=== PATIENT | female | born 1985 | race Caucasian/White ===

== ENCOUNTER → 2018-06-24 15:14 | Outpatient (REF) | payer MEDICAID, SELFPAY ==
[2018-06-25 14:36] LABS: Chlamydia Result Negative; GC Result Negative; Specimen Description URINE
== END ==
LOC: LBN 15:14
PROVIDERS: PCP Nurse Practitioner Family; Visit Provider Nurse Practitioner Women's Health
DX: Z11.3 Encounter for screening for infections with a predominantly sexual mode of transmission (principal)
CPT/HCPCS: 87491; 87591

== ENCOUNTER 2020-08-07 11:57 | Outpatient (REF) | payer MEDICAID, SELFPAY ==
--- NOTE | 2020-08-07 11:30 | PAPFT_PTH ---
PATIENT: Rebecca Casiano LOC: [facility] U#:[id number] AGE/SX: 34/F ROOM: RE08/07/[address]: Meghan Herring NP : 1985 BED: DIS: 08/07/2020 SPEC #: [id number] RECD: 08/07/20 12:50 STATUS: TRISTAN REJonel #: [id number] EDNA: 08/07/20 11:[address]: Meghan Herring NP DEPT: [facility] Cytology RECD BY: Arti Cabral ENTERED: 08/07/20 12:50 SP TYPE: PAPFT OTHR DR: Leah Mota, ANNALISE Tissues: 1 - CX/ENDOCX FOR PAP SMEARS Procedures: PAP THIN PREP/UVM Screening HPV DNA PROBE Comments: [id number] (CHLAMYDIA/GC)
[2020-08-08 14:27] LABS: Chlamydia Result Negative (Negative); GC Result Negative (Negative)
== END 2020-08-07 12:17 ==
LOC: LBN 11:57
PROVIDERS: PCP Nurse Practitioner Family; Visit Provider Nurse Practitioner Women's Health
DX: Z12.4 Encounter for screening for malignant neoplasm of cervix (principal); Z11.51 Encounter for screening for human papillomavirus (HPV); Z11.3 Encounter for screening for infections with a predominantly sexual mode of transmission
CPT/HCPCS: 87491; 87591; 88142; 87624

== ENCOUNTER 2020-10-24 09:41 | Day surgery (SDC) | payer MEDICAID, SELFPAY ==
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
--- NOTE | 2020-10-24 07:09 | PDOC.DSDIS_ITS ---
Discharge Plan Disposition Patient Disposition: HOME Condition: Good Discharge Details Reason For Visit: Burn Attending Provider: Pepper Navarrete Primary Care Provider: Leah Mota Home Meds and New Rx's Prescriptions: New acetaminophen [Tylenol] 325 mg capsule 650 mg PO Q6H PRNQty: 30 RF: 0 ibuprofen 600 mg tablet 600 mg PO Q6H PRNQty: 30 RF: 0 tramadol 50 mg tablet 50 mg PO Q6H PRNQty: 14 RF: 0 Continued Nexplanon 68 MG implant 68 mg SQ ONCE Qty: 1 RF: 0 No Action amoxicillin-pot clavulanate 875-125 mg tablet 1 tab PO BID RF: 0 Discharge Instructions Additional Instructions: Activity at Home after surgery: 1. As tolerated 2. No driving if you are taking Tramadol Diet, Nutrition, & wound healin. Avoid alcohol until after you are recovered from your surgery 2. Make sure to eat plenty of lean protein (meat, fish, eggs, cottage cheese, beans) 3. Eat a variety of fruits and vegetables. Eat plenty of high fiber foods to avoid constipation. 4. Drink plenty of liquids to stay hydrated and avoid constipation Pain Medications: 1. Tylenol 650 mg and Ibuprofen 600 mg every 3 hours 2. If a narcotic has been prescribed take as directed only for breakthrough pain For Constipation: 1. Take Milk of Magnesia or MiraLax as needed for constipation Other: 1. You may shower daily. Do not scrub the incisions 2. Do not soak the incisions for 1 week 3. You may alternate ice and heat as needed for pain and swelling Wound Care: 1. Keep the incisions clean and dry 2. If you have any issues with the dressing please let us know. Antoninohaley will call you tomorrow to check in and see how things are going. Please call our office if you develop: 1. Fevers >101.5 2. Nausea or Vomiting 3. Worsening pain 4. Redness and thick discharge from the wounds If after hours please call the Hospital at and ask to speak to the on-call surgeon Referrals: Pepper Navarrete MD [ [facility] STAFF PHYSICIAN] - 10/30/20 2:45 pm Activity:: Activity as Tolerated Diet:: As Tolerated Discharge Orders Discharge Orders: Discharge Order (Routine); Ordered 10/24/20 Ordered By: Pepper Navarrete
[2020-10-24 10:11] VITALS: BP 125/89; PULSE 81; RESP 18; TEMP 36.5; O2SAT 98
[2020-10-24] MEDS: Lactated Ringers 1,000 ML 80 ML IV (10:38)
[2020-10-24] MEDS: ceFAZolin 2 GM/50 ML BAG IVPB (12:35)
[2020-10-24] MEDS: Lidocaine 2% Multi-Dose 50 ML VIAL (12:56)
[2020-10-24 13:50] VITALS: BP 113/75; PULSE 74; RESP 18; TEMP 36.5; O2SAT 97
== END 2020-10-24 14:30 | disposition home or self-care (01) ==
LOC: SUR 09:42
PROVIDERS: PCP Nurse Practitioner Family; Visit Provider Surgery
PROC: (CPT 16020; principal; 2020-10-24 10:15)
DX: T25.312A Burn of third degree of left ankle, initial encounter (principal); X19.XXXA Contact with other heat and hot substances, initial encounter
CPT/HCPCS: 16020; 81025; J0690; J1100; J2001; J2250; J2405

== ENCOUNTER 2021-09-23 13:32 | Outpatient (REF) | payer MEDICAID, SELFPAY ==
--- NOTE | 2021-09-23 10:15 | PAPFT_PTH ---
PATIENT: Rebecca Casiano LOC: [facility] U#:[id number] AGE/SX: 35/F ROOM: RE09/23/[address]: MIGUEL Hernández : 1985 BED: DIS: 09/23/2021 SPEC #: [id number] RECD: 09/23/21 18:32 STATUS: TRISTAN REQ #: [id number] EDNA: 09/23/21 10:[address]: Silvina Romero DEPT: [facility] Cytology RECD BY: Arti Cabral ENTERED: 09/23/21 18:32 SP TYPE: PAPFT OTHR DR: Leah Mota APRN Tissues: 1 - CX/ENDOCX FOR PAP SMEARS Procedures: PAP THIN PREP/UVM Screening HPV DNA PROBE Comments: [id number]
[2021-09-25 14:49] LABS: Chlamydia Result Negative (Negative); GC Result Negative (Negative)
== END 2021-09-23 13:33 | disposition home or self-care (01) ==
LOC: LBN 13:32
PROVIDERS: PCP Nurse Practitioner Family; Visit Provider Nurse Practitioner Family
DX: Z12.4 Encounter for screening for malignant neoplasm of cervix (principal); Z11.3 Encounter for screening for infections with a predominantly sexual mode of transmission; Z11.51 Encounter for screening for human papillomavirus (HPV); R87.820 Cervical low risk human papillomavirus (HPV) DNA test positive
CPT/HCPCS: 87491; 87591; 88142; 87624

== ENCOUNTER 2021-10-22 16:07 | Outpatient (REF) | payer MEDICAID, SELFPAY ==
--- NOTE | 2021-10-22 16:00 | ENDO_PTH ---
PATIENT: Rebecca Casiano LOC: [facility]#:[id number] AGE/SX: 35/F ROOM: RE10/22/[address]: Jany Osborn : 1985 BED: DIS: 10/22/2021 SPEC #: [id number] RECD: 10/22/21 17:16 STATUS: TRISTAN [place] #: [id number] EDNA: 10/22/21 16:[address]: Jany Osborn DEPT: Surgical Specimen RECD BY: Arti Cabral ENTERED: 10/22/21 17:16 SP TYPE: Endo OTHR DR: Leah Mota, ANNALISE Tissues: 1 - ENDOCERVICAL BX/CURRETTE Procedures: GROSS AND MICRO LEVEL 4 Comments: [id number]
== END 2021-10-22 16:08 | disposition home or self-care (01) ==
LOC: LBN 16:07
PROVIDERS: PCP Nurse Practitioner Family; Visit Provider Obstetrics & Gynecology Gynecology
DX: N72 Inflammatory disease of cervix uteri (principal)
CPT/HCPCS: 88305

== ENCOUNTER 2021-12-11 03:32 | Outpatient (CLI) | payer MEDICAID, SELFPAY ==
[2021-12-11 14:19] LABS: TSH (W/Ref FT4) 0.93 uIU/mL (0.36-3.74)
== END 2021-12-11 03:33 | disposition home or self-care (01) ==
LOC: LBO 03:33
PROVIDERS: PCP Nurse Practitioner Family; Visit Provider Nurse Practitioner Family
DX: R63.5 Abnormal weight gain (principal)
CPT/HCPCS: 36415; 84443

== ENCOUNTER 2022-11-03 19:31 | Emergency (ER) | payer MEDICAID, SELFPAY ==
--- NOTE | 2022-11-03 19:30 | RT.EKG_ITS ---
APPROVED REPORT Exam: Resting ECG Reason for Exam: left arm pain Patient Location: E HR:90 bpm ECG Measurements Heart Rate 90 AXIS FL 145 P 65 QRSd 73 QRS 64 QT 361 T 51 QTc 443 Conclusion Sinus rhythm...normal P axis, V-rate 60- 99 Consider left ventricular hypertrophy...(S V1+R V5/V6) >3.25mV sinus rhythm, normal axis, normal intervals, non ischemic
[2022-11-03 19:34] VITALS: BP 144/93; PULSE 84; RESP 20; TEMP 37; O2SAT 98
--- NOTE | 2022-11-03 20:00 | DI.CT_ITS ---
Exam(s) CT UPPER EXTREMITY LT CTA EXAM: CT UPPER EXTREMITY LT CTA CLINICAL HISTORY: LUE pain, paresthesia, discoloration TECHNIQUE: Imaging Protocol: Axial computed tomography images with coronal and sagittal reformatted images were created and reviewed. CONTRAST MATERIAL: Intravenous: Omnipaque 350 Contrast volume:100 mL contrast route:IV COMPARISON: No exams were available for comparison FINDINGS: ARTERIAL: The aortic arch anatomy is conventional. No evidence of dissection. No significant stenos is at the origin of the great vessels off of the aortic arch nor in the subclavian arteries proximal to the vertebral artery takeoff points and both vertebral arteries originated conventional fashion of f of the subclavian arteries bilaterally. Common carotid arteries are patent as are their bifurcatio ns and visualized internal carotid arteries in the neck. Vertebral arteries are patent bilaterally w ith no significant stenosis at their origins nor within the foramen transverse area and both vertebra l arteries contribute to the formation of the basilar artery at the skull base. The left subclavian artery is patent and nonstenotic. The left axillary artery and left brachial art sabas also patent as are the radial and ulnar arteries in the forearm. VENOUS: There is mild narrowing of the left subclavian vein is a passes between the 1st rib and the c lavicle. There are no cervical ribs. IMPRESSION: Normal CT angiogram study of the left upper extremity. Mild narrowing of the left subclavian vein as it passes between the 1st rib and clavicle. RADIATION DOSE DELIVERED: 662.36mGy.cm Total DLP DATA REPOSITORY: All CT scans at this facility are submitted to the National Radiology Data Registry (NRDR) Dose Index Registry (DIR) with the [employer] (ACR). RADIATION OPTIMIZATION: All CT scans at this facility use at least one of these dose optimization te chniques: automated exposure control; mA and/or kV adjustment per patient size (includes targeted exa ms where dose is matched to clinical indication); or iterative reconstruction.
--- NOTE | 2022-11-03 20:31 | ED.GENADUL_ITS ---
Discharge Plan Disposition Patient Disposition: Home Condition: Improving Discharge Details Clinical Impression: Arm pain Primary Care Provider: Leah Mota ED Provider: Dallin Mazariegos Home Meds and New Rx's Prescriptions: New lidocaine [Lidoderm] 5 % adhesive patch,medicated 1 patch topical DAILY Qty: 15 0RF Rx Instructions: leave on most painful area for up to 12 hrs cyclobenzaprine 5 mg tablet 5 mg PO HS PRN (Reason: muscle spasm) Qty: 7 0RF No Action Nexplanon 68 MG implant 68 mg SQ ONCE Qty: 1 0RF Label Comments: Pt reports SQ in left inner arm ibuprofen 600 mg tablet 600 mg PO Q6H PRNQty: 30 0RF Label Comments: Patient denies 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 Return to emergency room for any worsening symptoms Medical Decision Making 36-year-old female presents with atraumatic pain to left upper extremity beginning in her elbow now involving entire left upper extremity from shoulder down to forearm, does not remember any discrete trauma, no history of thromboembolic disease in herself or the family that she knows of, patient does have Nexplanon implant. Slight mottling of skin involving left upper extremity, strong radial pulse, range of motion at shoulder and elbow limited by discomfort, median radial and ulnar nerve distribution sensory exam intact. Patient afebrile nontoxic however appears uncomfortable. Concern for upper extremity DVT versus arterial insult such as dissection or arterial thrombus versus vasospastic event or neuropathic event consider atypical cervical radiculopathy as pain does radiate into the shoulder and neck region on the left side. Low suspicion for ACS. Will trial analgesia anti-inflammatory will obtain basic labs, EKG, stat CT imaging of left upper extremity will attempt to obtain both arterial and venous phase. If incomplete venous phase on study will have patient return for official left upper extremity ultrasound tomorrow. Disposition pending results and reassessment 23: 44 patient feeling much better after anti-inflammatory analgesics range of motion of shoulder and elbow intact able to raise arm above head. CTA with venous phase negative for arterial or venous occlusion. No evidence of fracture. Likely musculoskeletal in nature consider rotator cuff injury versus shoulder impingement versus cervical radiculopathy. Home care instructions and return precautions given. HPI General Date/Time Provider Initiated Documentation: 11/03/22 19:48 . HPI Narrative: 36-year-old female presents with atraumatic left arm pain, initially noted pain a couple days ago in her elbow region self resolved, awoke from sleep today with excruciating pain throughout her entire left upper extremity beginning in shoulder and continuing down into forearm has also noticed some swelling and discoloration of the arm. Denies history of thromboembolic disease in herself or the family. Patient does have Nexplanon implant. 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 No chest pain or shortness of breath. Related Data Home Medications Medication Instructions Recorded Confirmed etonogestrel 68 mg subdermal 68 mg SQ ONCE #1 implant 06/24/18 11/03/22 implant (Nexplanon) ibuprofen 600 mg tablet 600 mg PO Q6H PRN #30 tabs 10/24/20 11/03/22 cyclobenzaprine 5 mg tablet 5 mg PO HS PRN muscle spasm #7 tabs 11/03/22 lidocaine 5 % topical patch 1 patch topical DAILY #15 ea 11/03/22 (Lidoderm) Previous Rx's Medication Instructions Recorded etonogestrel 68 mg subdermal 68 mg SQ ONCE #1 implant 06/24/18 implant (Nexplanon) ibuprofen 600 mg tablet 600 mg PO Q6H PRN #30 tabs 10/24/20 cyclobenzaprine 5 mg tablet 5 mg PO HS PRN muscle spasm #7 tabs 11/03/22 lidocaine 5 % topical patch 1 patch topical DAILY #15 ea 11/03/22 (Lidoderm) Allergies Allergy/AdvReac Type Severity Reaction Status Date / Time No Known Drug Allergies Allergy Verified 11/03/22 19:54 General Stated Complaint: Orthopedic IVONNE: 4 Review of Systems Narrative: Review of Systems Constitutional: negative Eyes: negative ENT: negative Cardiovascular: negative Respiratory: negative Gastrointestinal: negative : negative Musculoskeletal: Left arm pain Skin: negative Neurologic: negative Psych: negative PFSH All Active Problems (Updated 11/03/22 @ 23:46 by Dallin Mazariegos MD) Arm pain (Acute) Chronic pain of right elbow (Acute) Tobacco use (Acute) socially. 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 Nl Pap till 2015: Nl Pap/+ HPV. 2016: Nl Pap/+HPV. Colpo bx: nl ECC. 2020 + HPV, 10/2021 Colpo Bx: Contraception management (Chronic 04/24/16) Nexplanon Migraine aura without headache (Chronic) Sx include numbness/tingling L arm followed by blurry vision --> Neuro workup 2009 including brain MRI & sleep study - determined to be aura without headache Medical History (Updated 11/03/22 @ 23:46 by Dallin Mazariegos MD) Anxiety and depression (05/20/17) Surgical History (Updated 02/26/22 @ 14:05 by Elsa Mora RN) Epidermal cyst (~02/2022) 02/17/22 Dr Brooke - proc to excise scheduled 02/25/22-follicuar cysts site A nasal wound, site B left preauricular cheek removed.- LIT derm. Edwardo Neely S/P excisional debridement (~10/24/20) left ankle burn Family History Mother Hypothyroidism Father Hyperlipidemia Grandfather , old age at age 90. Personal history of malignant neoplasm ??throat. stomach, not exactly sure?? Daughter No problems noted. Great Grandmother Diabetes Maternal Aunt Stroke Other Seizure disorder Social History Smoking/Tobacco Use Status: Current every day Tobacco Type: cigarettes and e-cigarettes Smoking risk assessment performed?: Yes (when drinking ETOH.) Alcohol Intake: current Alcohol Intake frequency: 3 or more drinks per day Alcohol type: beer Details: on weekends. 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 Sexually active: Yes Current gender identity: female What type of physical activity do you participate in: none Seatbelt use: always Do you feel safe at home: Yes Do you feel safe in your relationship?: Yes Female Reproductive History Menstrual control method: implanted Exam Narrative Exam Narrative: Physical Examination General: alert, awake, cooperative, resting comfortably, no acute distress HEENT: normocephalic, atraumatic; PERRL, EOM intact, conjunctiva normal; no nasal discharge; moist mucous membranes, oral and pharyngeal mucosa normal, tolerating secretions Neck: supple, trachea midline; full ROM Chest: normal to inspection Respiratory: normal respiratory effort, speaking in full sentences, clear to auscultation, no wheezing, rales or rhonchi Cardiac: regular rate, regular rhythm, S1S2 intact, no murmurs rubs or gallops GI: abdomen soft, non-tender, non-distended; no palpable mass or hepatosplenomegaly Back: No midline spinal tenderness Skin: no lesions, rashes or trauma appreciated Neuro: AAOx3, normal speech, moving all extremities Extremities: Patient holding left upper extremity abducted to side, pain with range of motion at shoulder and elbow, does have slightly mottled appearance throughout length of extremity, strong radial pulse, median radial and ulnar nerve distribution sensory exam intact, able to flex and extend fingers no external signs of trauma Psych: Appropriate mood and affect Course Vital Signs Vital signs: Vital Signs Temperature 37.0 C 11/03/22 19:34 Pulse 84 11/03/22 19:34 Respiratory Rate 20 11/03/22 19:34 Blood Pressure 144/93 H 11/03/22 19:34 Pulse Oximetry 98 11/03/22 19:34 Temperature 37.0 C 11/03/22 19:34 Temperature Source Temporal Artery Scan 11/03/22 19:34 Pulse 84 11/03/22 19:34 Respiratory Rate 20 11/03/22 19:34 Respiratory Effort 11/03/22 19:55 Blood Pressure 144/93 H 11/03/22 19:34 Blood Pressure Position Sitting 11/03/22 19:34 Pulse Oximetry 98 11/03/22 19:34 Oxygen Delivery Method Room Air 11/03/22 19:34 Oxygen Flow Rate 0 11/03/22 19:34 Pain Level 9 11/03/22 19:57 PAWSS Have you Been Recently Intoxicated or Drunk Within the Last 30 days?: Yes Have you Ever Experienced Previous Episodes of Alcohol Withdrawal?: No Have you ever Experienced Withdrawal Seizures?: No Have you ever Experienced Delirium Tremens(DT)s?: No Have you ever undergone Alcohol Rehabilitation Treatment (i.e, inpt ot outpatient treatment programs)?: No Have you ever Experienced Blackouts?: No Have you ever Combined Alcohol with other Downers within the last 90 days?: No Have you ever Combined Alcohol with any other Substance of Abuse during the last 90 days?: No Positive Blood Alcohol level on Presentation? [PCS.BAL]: No Evidence of Increased Autonomic Activity (i.e. HR>120, tremor, sweating, agitation, nausea)?: No Result: 1
[2022-11-03 20:35] LABS: Abs Immature Grans 0.05 10^3/uL (0.0-0.06); HCT 43.3 % (36.0-46.0); HGB 14.7 g/dL (11.2-15.7); MCH 34.8 pg (27.0-33.0); MCHC 33.9 % (32.0-36.0); MCV 103 fL (80-95); MPV 12.9 fL (8.0-11.0); Platelet Count 208 10^3/uL (130-400); RBC 4.22 10^6/uL (3.93-5.22); RDW 13.6 % (11.7-14.6); RDW-SD 51.7 fL; WBC 15.41 10^3/uL (4.4-10.8)
[2022-11-03] MEDS: Dexamethasone 10 MG/ML VIAL IVP (20:40)
[2022-11-03] MEDS: Ketorolac 15 MG/ML VIAL IVP (20:40)
[2022-11-03 20:53] LABS: ALT 26 U/L (14-59); AST 19 U/L (15-37); Albumin 4.4 g/dL (3.4-5.0); Alkaline Phosphatase 101 U/L (46-116); Anion Gap 11.1 mmol/L (3-11); BUN 7 mg/dL (7-18); Bilirubin, Total 0.6 mg/dL (0.2-1.0); CO2 25.9 mmol/L (21.0-32.0); CREATININE 0.6 mg/dL (0.55-1.02); Calcium 9.2 mg/dL (8.5-10.1); Chloride 100 mmol/L (98-107); Estimated GFR 117.75 (mL/min/1.73m2); Glucose 88 mg/dL (74-106); Potassium 3.9 mmol/L (3.5-5.1); Sodium 137 mmol/L (136-145); Total Protein 8.1 g/dL (6.4-8.2); Troponin I < 50 ng/L (<or=60)
[2022-11-03 20:55] LABS: Absolute Eosinophil Count 0.15 10^3/uL (0.0-0.7); Absolute Monocyte Count 0.77 10^3/uL (0.1-0.8); Absolute Neutrophil Count 10.79 10^3/uL (1.2-6.7); Diff Comment Manual Differential; RBC Morphology Normal
[2022-11-03] MEDS: LORazepam 2 MG/ML VIAL 0.5 MG IVP (21:09)
[2022-11-03] MEDS: Omnipaque 350 MG/ML 100 ML BTL IJ (21:58)
[2022-11-03] MEDS: Normal Saline 500 ML 1000 ML IV (22:37)
--- NOTE | 2022-11-03 23:32 | DI.VRAD_ITS ---
PROCEDURE INFORMATION: Exam: CTA Left Upper Extremity With Contrast Exam date and time: 11/03/2022 9:52 PM Age: 36 years old Clinical indication: Other: Left arm pain TECHNIQUE: Imaging protocol: Computed tomographic angiography of the Left upper extremity with contrast, including non-contrast images if performed. 3D rendering (Not supervised by radiologist): MIP and/or 3D reconstructed images were created by the technologist. Radiation optimization: All CT scans at this facility use at least one of these dose optimization techniques: automated exposure control; mA and/or kV adjustment per patient size (includes targeted exams where dose is matched to clinical indication); or iterative reconstruction. Contrast material: OMNIPAQUE 350; Contrast volume: 100 ml; Contrast route: INTRAVENOUS (IV); COMPARISON: No relevant prior studies available. FINDINGS: Left subclavian artery: No acute findings. No occlusion or significant stenosis. Specifically, with a hands above the head, no kinking or compression of the subclavian artery is seen. Axillary artery: No acute findings. No occlusion or significant stenosis. Specifically, with a hands above the head, no kinking or compression of the subclavian artery is seen. Brachial artery: No acute findings. No occlusion or significant stenosis. Radial artery: No acute findings. No occlusion or significant stenosis. Ulnar artery: No acute findings. No occlusion or significant stenosis. Lungs: Mild paraseptal emphysema within the upper lobes. Bones/joints: Mild marrow of the left subclavian vein is seen as it passes between the 1st rib and clavicle. This is similar when compared to the opposite/right subclavian vein. The remaining veins of the left upper extremity are normal in appearance. No cervical rib. Soft tissues: Unremarkable. No abnormal contrast enhancement. No adenopathy. IMPRESSION: 1. Normal CT angiogram of the left upper extremity without evidence for compression or stenosis. 2. Mild marrow of the left subclavian vein is seen as it passes between the 1st rib and clavicle. This is similar when compared to the opposite/right subclavian vein. The remaining veins of the left upper extremity are normal in appearance. Dictated and Authenticated by: Shameka Jasso MD. Ordering:MANOHAR Zamarripa MD
== END 2022-11-03 23:56 | disposition home or self-care (01) ==
PROVIDERS: Emergency Provider Emergency Medicine; PCP Nurse Practitioner Family
DX: M79.602 Pain in left arm (principal)
CPT/HCPCS: 36415; 73206; 80053; 93005; 96374; 96375; 99285; 84484; 85025; 93010; J1100; J1885; J2060; J3490

== ENCOUNTER 2022-12-17 14:56 | Outpatient (REF) | payer MEDICAID, SELFPAY ==
--- NOTE | 2022-12-17 14:15 | PAPFT_PTH ---
PATIENT: Rebecca Casiano LOC: [facility] U#:[id number] AGE/SX: 37/F ROOM: RE12/17/[address]: Meghan Herring NP : 1985 BED: DIS: 12/17/2022 SPEC #: [id number] RECD: 12/17/22 18:28 STATUS: TRISTAN REJonel #: [id number] EDNA: 12/17/22 14:[address]: Meghan Herring NP DEPT: [facility] Cytology RECD BY: Arti Cabral ENTERED: 12/17/22 18:29 SP TYPE: PAPFT OTHR DR: Leah Mota APRN Tissues: 1 - CX/ENDOCX FOR PAP SMEARS Procedures: PAP THIN PREP/UVM Screening HPV DNA PROBE Comments: [id number]
== END 2022-12-17 14:57 | disposition home or self-care (01) ==
LOC: LBN 14:56
PROVIDERS: PCP Nurse Practitioner Family; Visit Provider Nurse Practitioner Women's Health
DX: Z12.4 Encounter for screening for malignant neoplasm of cervix (principal); Z11.51 Encounter for screening for human papillomavirus (HPV); R87.810 Cervical high risk human papillomavirus (HPV) DNA test positive
CPT/HCPCS: 88142; 87624

== ENCOUNTER 2023-02-10 15:51 | Outpatient (REF) | payer MEDICAID, SELFPAY ==
--- NOTE | 2023-02-10 15:40 | ENDO_PTH ---
PATIENT: Rebecca Casiano LOC: [facility] U#:[id number] AGE/SX: 37/F ROOM: RE02/10/[address]: Violetta Nicholson DO : 1985 BED: DIS: 02/10/2023 SPEC #: [id number] RECD: 02/10/23 16:42 STATUS: TRISTAN RE #: [id number] EDNA: 02/10/23 15:[address]: Violetta Nicholson DEPT: Surgical Specimen RECD BY: Arti Cabral ENTERED: 02/10/23 16:43 SP TYPE: Endo OTHR DR: Leah Mota APRN Tissues: 1 - ENDOCERVICAL BX/CURRETTE 2 - CERVICAL BIOPSY Procedures: GROSS AND MICRO LEVEL 4 Comments: [id number]
== END 2023-02-10 15:52 | disposition home or self-care (01) ==
LOC: LBN 15:51
PROVIDERS: PCP Nurse Practitioner Family; Visit Provider Obstetrics & Gynecology
DX: R87.810 Cervical high risk human papillomavirus (HPV) DNA test positive (principal); N88.8 Other specified noninflammatory disorders of cervix uteri; N72 Inflammatory disease of cervix uteri
CPT/HCPCS: 88305

== ENCOUNTER 2023-03-06 11:31 | Outpatient (CLI) | payer MEDICAID, SELFPAY ==
[2023-03-06 11:31] LABS: Abs Immature Grans 0.04 10^3/uL (0.0-0.06); Absolute Basophil Count 0.06 10^3/uL (0.0-0.2); Absolute Eosinophil Count 0.19 10^3/uL (0.0-0.7); Absolute Lymphocyte Count 1.53 10^3/uL (1.2-3.4); Absolute Monocyte Count 0.54 10^3/uL (0.1-0.8); Basophils % 0.5; Eosinophils % 1.6; HCT 42.9 % (36.0-46.0); HGB 14.9 g/dL (11.2-15.7); Immature Grans % 0.3; Lymphocytes % 13.2; MCH 34.5 pg (27.0-33.0); MCHC 34.7 % (32.0-36.0); MCV 99 fL (80-95); MPV 12.4 fL (8.0-11.0); Monocytes % 4.7; Neutrophils % 79.7; Platelet Count 208 10^3/uL (130-400); RBC 4.32 10^6/uL (3.93-5.22); RDW 13.9 % (11.7-14.6); RDW-SD 51.2 fL; WBC 11.59 10^3/uL (4.4-10.8)
[2023-03-06 11:35] LABS: Absolute Neutrophil Count 9.24 10^3/uL (1.2-6.7)
[2023-03-06 11:49] LABS: ALT 21 U/L (14-59); AST 16 U/L (15-37); Albumin 4.3 g/dL (3.4-5.0); Alkaline Phosphatase 81 U/L (46-116); Anion Gap 11.4 mmol/L (3-11); BUN 8 mg/dL (7-18); Bilirubin, Total 0.5 mg/dL (0.2-1.0); CO2 24.6 mmol/L (21.0-32.0); CREATININE 0.7 mg/dL (0.55-1.02); Calcium 8.8 mg/dL (8.5-10.1); Calculated LDL 59 mg/dL (<100); Chloride 104 mmol/L (98-107); Cholesterol 193 mg/dL (<200); Estimated GFR 112.75 (mL/min/1.73m2); Glucose 90 mg/dL (74-106); HDL Cholesterol 127 mg/dL (40-60); Potassium 4.1 mmol/L (3.5-5.1); Sodium 140 mmol/L (136-145); Total Protein 7.7 g/dL (6.4-8.2); Triglyceride 39 mg/dL (<150)
[2023-03-07 11:44] LABS: HIV-1/2 Ag & Ab Screen Negative (Negative)
[2023-03-09 11:32] LABS: Hepatitis C Ab w Rflx HCV PCR Negative (Negative)
== END 2023-03-06 11:32 | disposition home or self-care (01) ==
LOC: LBO 11:31
PROVIDERS: PCP Nurse Practitioner Family; Visit Provider Nurse Practitioner Family
DX: Z13.220 Encounter for screening for lipoid disorders (principal); D75.89 Other specified diseases of blood and blood-forming organs; Z13.1 Encounter for screening for diabetes mellitus
CPT/HCPCS: 36415; 80053; 80061; 86803; 87389; 85025

== ENCOUNTER → 2023-08-12 02:03 | Outpatient (CLI) | payer MEDICAID, SELFPAY ==
--- NOTE | 2023-08-12 07:45 | DI.MRI_ITS ---
Exam(s) MR IAC BRAIN WO/W EXAM: MR IAC BRAIN WO/W CLINICAL HISTORY: Asymmetrical hearing loss,H90.3 TECHNIQUE: Multiplanar multisequence MRI of the brain was performed. Both noninfused and contrast i nfused sequences were performed. IV Contrast injected was 10 cc Dotarem. COMPARISON: MR MRI - BRAIN W/WO CONTRAST from 06/05/2010 FINDINGS: CEREBRAL PARENCHYMA: No evidence of intracranial hemorrhage, mass effect nor shift of midline structu re. No extraaxial fluid collections. Ventricles are not enlarged nor shifted. There is no significant focal signal abnormality in the cerebellar hemispheres nor within the linda, m idbrain, and thalami. There is no abnormal signal abnormality in the periventricular white matter. DWI: No areas of restricted diffusion to suggest acute ischemic event. SWI: No microhemorrhages evident. IAC'S: There are no masses evident in the cerebellopontine angles nor within the internal auditory ca nals. Seventh and 8th cranial nerves appear unremarkable within the bilateral internal auditory liat ls. No evidence of enhancing intra canalicular acoustic neuroma-schwannoma. There are no ring enhancing lesions in the brain. There is no abnormal meningeal enhancement. PITUITARY GLAND: No mass nor parasellar abnormality. No obvious abnormality in the cavernous sinuses. FLOW VOIDS: The expected flow void are noted. No evidence of obvious aneurysm nor obvious vascular ma lformation. PARANASAL SINUSES: The visualized paranasal sinuses appear unremarkable. ORBITS: No obvious abnormal findings. IMPRESSION: 1. No significant intracranial findings on this MRI scan of the brain. 2. No abnormal enhancing intracranial findings. There are no ring enhancing lesions in the brain and there is no abnormal meningeal enhancement. 3. No evidence of acoustic neuroma-schwannoma. DATA REPOSITORY:
[2023-08-12] MEDS: Normal Saline Flush 10 ML SYR IVP (13:23)
[2023-08-12] MEDS: Gadoterate meglumine 20 ML SYRINGE 10 ML IVP (13:24)
== END ==
PROVIDERS: PCP Nurse Practitioner Family; Visit Provider Registered Nurse Maternal Newborn
DX: H90.3 Sensorineural hearing loss, bilateral (principal)
CPT/HCPCS: 70553

== ENCOUNTER 2024-01-25 14:07 | Outpatient (REF) | payer MEDICAID, SELFPAY ==
--- NOTE | 2024-01-25 13:10 | PAPFT_PTH ---
PATIENT: Rebecca Casiano LOC: [facility] U#:[id number] AGE/SX: 38/F ROOM: RE01/25/[address]: Meghan Herring NP : 1985 BED: DIS: 01/25/2024 SPEC #: [id number] RECD: 01/25/24 17:55 STATUS: TRISTAN REJonel #: [id number] EDNA: 01/25/24 13:[address]: Nevaeh RICE,Meghan DEPT: [facility], [facility] Cytology RECD BY: Arti Cabral ENTERED: 01/25/24 17:55 SP TYPE: PAPFT OTHR DR: Leah Mota APRN Tissues: 1 - CX/ENDOCX FOR PAP SMEARS Procedures: PAP THIN PREP/UVM Screening HPV DNA PROBE Comments: [id number] (CHLAMYDIA/GC)
[2024-01-26 17:10] LABS: Chlamydia Result Negative (Negative); GC Result Negative (Negative)
== END 2024-01-25 14:08 | disposition home or self-care (01) ==
LOC: LBN 14:07
PROVIDERS: PCP Nurse Practitioner Family; Visit Provider Nurse Practitioner Women's Health
DX: Z12.4 Encounter for screening for malignant neoplasm of cervix (principal); R87.610 Atypical squamous cells of undetermined significance on cytologic smear of cervix (ASC-US); Z11.51 Encounter for screening for human papillomavirus (HPV); R87.810 Cervical high risk human papillomavirus (HPV) DNA test positive; Z11.3 Encounter for screening for infections with a predominantly sexual mode of transmission
CPT/HCPCS: 87491; 87591; 88142; 87624

== ENCOUNTER → 2024-02-03 01:58 | Outpatient (CLI) | payer MEDICAID, SELFPAY ==
--- NOTE | 2024-02-03 08:00 | DI.MAMMO_ITS ---
Exam(s) MAMMO SCREENING EXAM: MAMMO SCREENING CLINICAL HISTORY: screening,z12.39 TECHNIQUE: Bilateral full field digital CC and MLO mammographic images were obtained with 3D tomosyn thesis and utilizing computer aided detection (CAD). COMPARISON: This is a baseline examination. FINDINGS: Masses/Architectural Distortion: Partially obscured nodules are seen in both breasts. There is a 1.8 cm nodule in the upper outer quadrant of the left breast. There are 2 nodule seen on the right. Th ere is a retroareolar nodule measuring 2.6 cm. And a 1.8 cm nodule in the upper right breast on the MLO view. There are no areas of architectural distortion. Microcalcifications: No suspicious pleomorphic-type are seen. Skin Thickening/Nipple Retraction: None. IMPRESSION: 1. Bilateral breast nodules. 2. Spot compression views are requested for further evaluation. Targeted bilateral breast ultrasound s should also be obtained at that time. BI-RADS Category 0 - Assessment Incomplete: Need additional imaging evaluation Breast Density - Category C - Heterogeneously dense Breast density category C or D implies that the patient has dense breast tissue. Dense breast tissue is very common and is not abnormal but dense breast tissue can make it harder to find cancer on a ma mmogram. Also, dense breast tissue may increase their breast cancer risk. This information about the result of the mammogram report was provided to the patient to raise their awareness. Use this report when you speak with the patient about their risks for breast cancer, which includes their family hist ory. At that time, you may recommend for more screening tests (Ultrasound or MRI) as they might be us eful based on their risk. A negative radiographic report should not delay biopsy if a dominant or clinically suspicious mass is present. Up to ten percent of cancers are not identified on mammography. A negative report may reinforce clinical impression. Adenosis and dense breasts may obscure an underlying neoplasm. False positive reports average 6 to 10%. Patient will receive a letter notifying them of these results.
== END ==
PROVIDERS: PCP Nurse Practitioner Family; Visit Provider Nurse Practitioner Women's Health
DX: Z12.31 Encounter for screening mammogram for malignant neoplasm of breast (principal)
CPT/HCPCS: 77063; 77067

== ENCOUNTER → 2024-02-29 02:34 | Outpatient (CLI) | payer MEDICAID, SELFPAY ==
--- NOTE | 2024-02-29 | DI.US_ITS ---
Exam(s) US BREAST RT COMPLETE US BREAST LT LIMITED MG MAMMO SCREEN CALL BACK BI EXAM: MG MAMMO SCREEN CALL BACK BI and U/S breast LT limited and U/S breast RT complete CLINICAL HISTORY: F/U MAMMO, R92.8,BILAT BREAST NODULES. TECHNIQUE: Craniocaudal and mediolateral oblique Full Field Digital Mammography views of the bilater al breast with Computer Aided Diagnosis followed by Tomosynthesis and bilateral breast ultrasound. A ll 4 quadrants of the right breast were evaluated sonographically in addition to the right axilla and right retroareolar region. COMPARISON: Comparison mammogram was her baseline examination from 02/03/2024 FINDINGS: Mammography/Tomosynthesis: Masses/Architectural Distortion: There is again seen a well-circumscribed nodule in the upper outer q uadrant of the left breast. There again seen well-circumscribed nodules in the right breast 1 in the retroareolar region and 1 in the upper right breast. No areas of architectural distortion Microcalcifictions: No suspicious pleomorphic-type are seen. Skin Thickening/Nipple Retraction: None. Limited left incomplete right breast US: Echotexture: Normal appearance of the glandular tissue. Shadowing: No suspicious foci. Cyst: At the 2 o'clock position of the left breast 2 cm from the nipple, there is a simple cyst prese nt measuring 1.8 x 1.0 x 1.4 cm. This would correspond to the mammographic abnormality. In the righ t breast at the 12 o'clock position 1 cm from the nipple, there is a 2.3 x 0.7 x 2.0 cm simple cyst w hich would correspond to the mammographic abnormality. There is a cyst at the 10 o'clock position 3 cm from the nipple measuring 1.8 x 0.7 x 1.5 cm which would correspond to the 2nd nodule seen on the mammogram. There is also a simple cyst at the 6 o'clock position 2 cm from the nipple measuring 0.7 x 0.6 x 0.7 cm. Solid lesions: Normal lymph nodes are seen in the axilla. Ductal dilation: None. IMPRESSION: 1. No evidence of malignancy is noted. Bilateral simple breast cysts. 2. Unless there is more urgent need, follow-up screening mammography is recommended, as per [place] [employer] guidelines. 3. The findings were discussed with the patient on the date of the examination. BI-RADS Category 2 - Benign Findings Breast Density - Category C - Heterogeneously dense Breast density Category C or D implies that the patient has dense breast tissue. Dense breast tissue can make it harder to find cancer on a mammogram. Dense breast tissue is also associated with an incr eased risk of breast cancer. This information about the result of the mammogram report was provided to the patient to raise their awareness. Use this report when you speak with the patient about their risks for breast cancer, which includes their family history. At that time, you may recommend additional screening tests (Ultrasoun d or MRI) as these tests may add significant information. A negative radiographic report should not delay biopsy if a dominant or clinically suspicious mass is present. Up to ten percent of cancers are not identified on mammography. A negative report may reinforce clinical impression. Adenosis and dense breasts may obscure an underlying neoplasm. False positive reports average 6 to 10%. Patient will receive a letter notifying them of these results.
== END ==
PROVIDERS: PCP Nurse Practitioner Family; Visit Provider Nurse Practitioner Women's Health
DX: Z12.31 Encounter for screening mammogram for malignant neoplasm of breast (principal); R92.8 Other abnormal and inconclusive findings on diagnostic imaging of breast
CPT/HCPCS: 76642; 77063; 77067

== ENCOUNTER 2024-12-12 11:14 | Outpatient (REF) | payer MEDICAID, SELFPAY ==
[2024-12-13 12:42] LABS: Chlamydia Result Negative (Negative); GC Result Negative (Negative)
== END 2024-12-12 11:15 | disposition home or self-care (01) ==
LOC: LBN 11:14
PROVIDERS: PCP Nurse Practitioner; Visit Provider Nurse Practitioner Women's Health
DX: Z11.3 Encounter for screening for infections with a predominantly sexual mode of transmission (principal)
CPT/HCPCS: 87491; 87591

== ENCOUNTER 2024-12-12 14:23 | Outpatient (CLI) | payer MEDICAID, SELFPAY ==
[2024-12-13 01:15] LABS: HIV-1/2 Ag & Ab Screen Negative (Negative)
[2024-12-13 01:18] LABS: Hepatitis C Ab w Rflx HCV PCR Negative (Negative)
[2024-12-14 14:04] LABS: Syphilis IgG w/Reflex Nonreactive (Nonreactive)
== END 2024-12-12 14:24 | disposition home or self-care (01) ==
LOC: LBO 14:23
PROVIDERS: PCP Nurse Practitioner; Visit Provider Nurse Practitioner Women's Health
DX: Z11.3 Encounter for screening for infections with a predominantly sexual mode of transmission (principal); N63.10 Unspecified lump in the right breast, unspecified quadrant
CPT/HCPCS: 36415; 86803; 87389; 86780

== ENCOUNTER 2024-12-20 02:01 | Outpatient (CLI) | payer MEDICAID, SELFPAY ==
--- NOTE | 2024-12-20 07:30 | DI.MAMMO_ITS ---
Exam(s) US BREAST RT COMPLETE MG MAMMO DIAGNOSTIC BI EXAM: MAMMO DIAGNOSTIC BI AND COMPLETE RIGHT BREAST ULTRASOUND CLINICAL HISTORY: 3cm mobile lump at 10:00 RT,N63.10. TECHNIQUE: BILATERAL CC AND MLO mammographic images were obtained with 3D tomosynthesis technique an d utilizing computer aided detection (CAD). Also performed additional spot compression view of the right breast. COMPLETE RIGHT BREAST ULTRASOUND was performed including all 4 quadrants as well as the right axilla. COMPARISON: Prior baseline mammogram of January 2024 was reviewed as was prior ultrasound of February. This 39-year-old patient presented to her physician with a new right breast lump at 10 o'clock positi on a few weeks ago. She claims that this has somewhat decreased in size since that time and is less painful. FINDINGS: DIAGNOSTIC BILATERAL MAMMOGRAM: The fibroglandular tissue pattern is again noted be moderately dense, this somewhat decreasing the se nsitivity of the mammogram for finding hidden underlying lesions. There are no CAD designations. The previously described nodular densities in the right breast have significantly decreased in size m ammographically. Indeed, there are no truly discernible nodules in the right breast on tomosynthesis . Nodular density laterally in the left breast has also decreased in size from the prior study. F t here are no new spiculated masses nor malignant-appearing microcalcification groups in either breast. There is no new architectural distortion or skin thickening-retraction. COMPLETE RIGHT BREAST ULTRASOUND: At the 12 o'clock position the previously present 2 cm cyst has significantly decreased in size. Pre sently there is a 10 x 7 mm wider than taller nodule with internal echoes, most probably hemorrhagic remnant of the previously present larger simple cyst. Less likely a fibroadenoma which was not previ ously seen. This exhibits slightly increased through transmission. At the 6 o'clock position there is a 10 x 6 mm benign cyst which has slightly increased in size from prior measurements of 7 x 6 mm. At the 7 o'clock position there is a 5 x 3 mm nodule with internal echoes, not previously seen. Susp ect that this is probably a small hemorrhagic microcyst. At the 10 o'clock position (area of palpable concern) there is again noted a previously described cys t which appears to have slightly decreased in size but exhibits the thicker circumferential 2 mm thic k wall when compared to the previous images of 02/29/2024. No internal septations. The measurements of the entire structure are 13 x 8 mm. The internal cystic component is 10 x 5 mm. There are no in ternal septations nor asymmetric mural nodules. I suspect that this is a crenating cyst, particularl y since this patient claims that it has decreased in size from a few weeks ago when she presented cli nically to her provider for this painful palpable finding. She denies fever and breast erythema and was not apparently on recent course of antibiotics. It is unlikely that this would be an abscess. IMPRESSION: 1. Dense bilateral fibroglandular tissue on mammography. No radiographic evidence on mammography. I t is interesting to note that the above described ultrasound findings are not well seen on 3D mammogr aphy. 2. Right breast ultrasound findings as described above. Her palpable finding at 10 o'clock position (which is apparently smaller clinically than 2 weeks ago) is most probably a cranating cyst which has decreased in size. 3. In addition, the solid 10 x 7 mm nodule at the 12 o'clock position of the right breast seen on ult rasound most probably corresponds to the previously present 2 cm benign cyst at this location which h as hemorrhages into itself, resulting in solid appearance at this time. 4. At the 7 o'clock position there is a 5 x 3 mm nodule with internal echoes which is probably a smal l hemorrhagic cyst. 5. Appropriate follow-up, as discussed by myself with the patient today, is repeat right breast ultra sound in 3 months time. At that time, given the density of this patient's fibroglandular tissue on m ammography, the fact that in this patient multiple findings are seen better on ultrasound than on flory mography, plus the fact that she is planning to have upcoming breast augmentation surgery, I recommen d that the ultrasound in 3 months time from now be a bilateral complete ultrasound examination. The patient was informed of the findings and follow-up recommendations myself prior to leaving the de partment today. BI-RADS Category 3 - 3 month - Probably Benign Finding: Recommend follow-up bilateral breast ultrasou nd in 3 months Breast Density - Category C - Heterogeneously dense Breast density Category C or D implies that the patient has dense breast tissue. Dense breast tissue can make it harder to find cancer on a mammogram. Dense breast tissue is also associated with an incr eased risk of breast cancer. This information about the result of the mammogram report was provided to the patient to raise their awareness. Use this report when you speak with the patient about their risks for breast cancer, which includes their family history. At that time, you may recommend additional screening tests (Ultrasoun d or MRI) as these tests may add significant information. A negative radiographic report should not delay biopsy if a dominant or clinically suspicious mass is present. Up to ten percent of cancers are not identified on mammography. A negative report may reinforce clinical impression. Adenosis and dense breasts may obscure an underlying neoplasm. False positive reports average 6 to 10%. Patient will receive a letter notifying them of these results.
== END 2024-12-20 02:21 ==
PROVIDERS: PCP Nurse Practitioner; Visit Provider Nurse Practitioner Women's Health
DX: N63.11 Unspecified lump in the right breast, upper outer quadrant (principal); Z12.31 Encounter for screening mammogram for malignant neoplasm of breast
CPT/HCPCS: 76642; 77062; 77066; G0279

== ENCOUNTER 2025-03-08 13:34 | Outpatient (REF) | payer MEDICAID, SELFPAY ==
--- NOTE | 2025-03-08 13:20 | PAPFT_PTH ---
PATIENT: Rebecca Casiano LOC: [facility] U#:[id number] AGE/SX: 39/F ROOM: RE03/08/[address]: Meghan Herring NP : 1985 BED: DIS: 03/08/2025 SPEC #: [id number] RECD: 03/08/25 17:35 STATUS: TRISTAN REQ #: [id number] EDNA: 03/08/25 13:[address]: Nevaeh RICE,Meghan DEPT: [facility] Cytology RECD BY: Arti Cabral ENTERED: 03/08/25 17:35 SP TYPE: PAPFT OTHR DR: Rosa Isela Terry APRN Tissues: 1 - CX/ENDOCX FOR PAP SMEARS Procedures: PAP THIN PREP/UVM Screening HPV DNA PROBE Comments: [id number] (HPV 16 & 18/45)
== END 2025-03-08 13:35 | disposition home or self-care (01) ==
LOC: LBN 13:34
PROVIDERS: PCP Nurse Practitioner; Visit Provider Nurse Practitioner Women's Health
DX: Z11.51 Encounter for screening for human papillomavirus (HPV) (principal); Z01.419 Encounter for gynecological examination (general) (routine) without abnormal findings; R87.612 Low grade squamous intraepithelial lesion on cytologic smear of cervix (LGSIL)
CPT/HCPCS: 88142; 87624

== ENCOUNTER 2025-03-23 01:07 | Outpatient (CLI) | payer MEDICAID, SELFPAY ==
--- NOTE | 2025-03-23 08:00 | DI.US_ITS ---
Exam(s) US BREAST LT COMPLETE US BREAST RT COMPLETE EXAM: US BREAST RT COMPLETE and U/S breast LT complete CLINICAL HISTORY: 3 month f/u,ABNL MAMMO, R92.8,RT BREAST NODULE TECHNIQUE: Ultrasound right and left breast performed using standard protocol. Complete bilateral b reast ultrasound were performed. All 4 quadrants of both breast were evaluated sonographically in ad dition to the axilla and retroareolar regions of both breasts. COMPARISON: US US BREAST LT LIMITED from 02/29/2024 US US BREAST LT COMPLETE from 03/23/2025 FINDINGS: Since the prior examination, the patient has undergone bilateral breast augmentations. Right breast: The hypoechoic radially oriented nodule at the 12 o'clock position of the right breast 1 cm from the nipple is unchanged. It measures 9 mm. There is a 1.2 x 0.6 cm simple cyst at the 8 o 'clock position of the right breast 4 cm from the nipple. No suspicious cystic or solid masses are s een in the right breast. Left breast: There is a 1.3 x 0.7 cm simple cyst at the 2 o'clock position of the left breast 4 cm fr om the nipple. There is a 1.0 x 0.6 cm simple cyst in the left breast at the 4 o'clock position 5 cm from the nipple. There also clusters of small cysts in the left breast. No suspicious cystic or so lid masses are seen in the left breast. Sonographically benign-appearing lymph nodes are seen in the axilla bilaterally. IMPRESSION: 1. No sonographically suspicious finding. 2. Bilateral simple cysts and a stable right breast solid mass. This likely represents a benign lesi on such as a fibroadenoma. 3. A six-month follow-up bilateral complete breast ultrasound is requested for re-evaluation. 4. Findings were discussed with the patient on the date of the examination. BI-RADS Category 3 - 6 month - Probably Benign Finding: Recommend follow-up imaging in 6 months DATA REPOSITORY:
== END 2025-03-23 01:27 ==
LOC: DI 01:07
PROVIDERS: PCP Nurse Practitioner; Visit Provider Nurse Practitioner Women's Health
DX: Z12.31 Encounter for screening mammogram for malignant neoplasm of breast (principal); N63.25 Unspecified lump in the left breast, overlapping quadrants; N63.15 Unspecified lump in the right breast, overlapping quadrants
CPT/HCPCS: 76642

== ENCOUNTER 2025-04-04 13:29 | Outpatient (REF) | payer MEDICAID, SELFPAY ==
--- NOTE | 2025-04-04 13:10 | ENDO_PTH ---
PATIENT: Rebecca Casiano LOC: [facility] U#:[id number] AGE/SX: 39/F ROOM: RE04/04/[address]: Violetta Nicholson DO : 1985 BED: DIS: 04/04/2025 SPEC #: [id number] RECD: 04/04/25 15:50 STATUS: TRISTAN REQ #: [id number] EDNA: 04/04/25 13:[address]: Violetta Nicholson DEPT: Surgical Specimen RECD BY: Arti Cabral ENTERED: 04/04/25 15:51 SP TYPE: Endo OTHR DR: Rosa Isela Terry APRN Tissues: 1 - ENDOCERVICAL BX/CURRETTE 2 - CERVICAL BIOPSY Procedures: GROSS AND MICRO LEVEL 4 Comments: [id number]
== END 2025-04-04 13:30 | disposition home or self-care (01) ==
LOC: LBN 13:29
PROVIDERS: PCP Nurse Practitioner; Visit Provider Obstetrics & Gynecology
DX: R87.619 Unspecified abnormal cytological findings in specimens from cervix uteri (principal)
CPT/HCPCS: 88305

== ENCOUNTER 2025-07-31 07:30 | Outpatient (CLI) | payer MEDICAID, SELFPAY ==
[2025-07-31 13:23] LABS: ALT 24 U/L (14-59); AST 19 U/L (15-37); Albumin 4.1 g/dL (3.4-5.0); Alkaline Phosphatase 86 U/L (46-116); Anion Gap 6.8 mmol/L (3-11); BUN 8 mg/dL (7-18); Bilirubin, Total 0.9 mg/dL (0.2-1.0); CO2 27.2 mmol/L (21.0-32.0); Calcium 9.3 mg/dL (8.5-10.1); Chloride 101 mmol/L (98-107); Estimated GFR 111.36 (mL/min/1.73m2); Glucose 102 mg/dL (74-106); Potassium 4.0 mmol/L (3.5-5.1); Sodium 135 mmol/L (136-145); Total Protein 7.4 g/dL (6.4-8.2)
[2025-08-01 14:54] LABS: Calculated LDL 78 mg/dL (<100); Cholesterol 200 mg/dL (<200); HDL Cholesterol 107 mg/dL (>or=50); Triglyceride 77 mg/dL (<150)
== END 2025-07-31 07:31 | disposition home or self-care (01) ==
LOC: LBO 07:30
DX: R03.0 Elevated blood-pressure reading, without diagnosis of hypertension (principal)
CPT/HCPCS: 36415; 80053; 80061